=== PATIENT | male | born 1970 | race Caucasian/White ===

== ENCOUNTER → 2016-05-07 | Outpatient (CLI) | payer BC ==
[~2016-05-07] MED LIST: ASPEC325 PO; CALCTAB5 PO; MULT-506 PO; OMEG10007 PO; PSYL55.43 PO; SIMV20TA2 PO; glucosamine PO
--- NOTE | 2016-05-07 17:11 | ECHOCARDIOGRAM REPORT ---
*NOTICE TO RECEIVING LIBERTARIAN AGENCY This information is strictly Confidential and protected under [place] law. [place] law prohibits you from making any further disclosure of this information unless further disclosure is expressly permitted by the written consent of the person to whom it pertains or is authorized by law. A general authorization for the release of medical or other information is not sufficient for this purpose. Hospital accepts no responsibility if the information is made available to any other person, INCLUDING THE PATIENT. Interpretation Summary * Name: AMARI KHAN Study Date: 05/07/2016 12:57 PM BP: 124/55 mmHg * Patient Location: [facility] HR: 83 * : 1970 (M/d/yyyy) Gender: Male Height: 64 in * Age: 45 yrs Ethnicity: CA Weight: 215 lb * Ordering Physician: Carlos A Lal * Referring Physician: Carlos A Lal. * Performed By: Katrina Stringer RCS * * Reason For Study: S/P MITRAL VALVE REPAIR (2001) * BSA: 2.0 m2 * -- Conclusions -- * There is mild concentric left ventricular hypertrophy. * Left ventricular systolic function is normal. * The left atrium is mildly dilated. * The posterior mitral leaflet is thickened and fixed consistent with prior mitral repair surgery. * Significant mitral regurgitation is absent. * Right ventricular systolic pressure is normal. * Mild aortic root dilatation. * Grade I diastolic dysfunction, (abnormal relaxation pattern). * Mitral stenosis is absent. * Compared toa study from 02/2015, the aortic root is slightly larger, otherwise no change Procedure Details * A complete two-dimensional transthoracic echocardiogram was performed (2D, M-mode, Doppler and color flow Doppler). Left Ventricle * The left ventricle is normal in size. * There is mild concentric left ventricular hypertrophy. * Left ventricular systolic function is normal. * Ejection Fraction = 55-60%. * Grade I diastolic dysfunction, (abnormal relaxation pattern). Right Ventricle * The right ventricle is grossly normal size. * The right ventricular systolic function is normal. Atria * The left atrium is mildly dilated. Mitral Valve * The posterior mitral leaflet is thickened and fixed consistent with prior mitral repair surgery. * Mitral stenosis is absent. * Significant mitral regurgitation is absent. Tricuspid Valve * The tricuspid valve is not well visualized, but is grossly normal. * There is trace tricuspid regurgitation. * Right ventricular systolic pressure is normal. Aortic Valve * The aortic valve is normal in structure and function. * No hemodynamically significant valvular aortic stenosis. * There is no significant aortic regurgitation. Great Vessels * Mild aortic root dilatation. Pericardium/Pleural * There is no pericardial effusion. MMode 2D Measurements and Calculations IVSd 1.4 cm IVSs 1.9 cm LVIDd 4.9 cm LVIDs 4.2 cm LVPWd 1.5 cm LVPWs 1.7 cm IVS/LVPW 0.92 FS 14.3 % EDV(Teich) 111.8 ml ESV(Teich) 77.9 ml EF(Teich) 30.3 % EDV(cubed) 116.3 ml ESV(cubed) 73.3 ml EF(cubed) 37.0 % % IVS thick 33.7 % % LVPW thick 10.9 % LV mass(C)d 302.3 grams LV mass(C)dI 149.9 grams/m\S\2 LV mass(C)s 330.0 grams LV mass(C)sI 163.6 grams/m\S\2 SV(Teich) 33.9 ml SI(Teich) 16.8 ml/m\S\2 SV(cubed) 43.0 ml SI(cubed) 21.3 ml/m\S\2 Ao root diam 4.3 cm Ao root area 14.7 cm\S\2 LA dimension 4.1 cm LA/Ao 0.94 LVOT diam 2.1 cm LVOT area 3.4 cm\S\2 Doppler Measurements and Calculations MV E max fauzia 92.5 cm/sec MV A max fauzia 135.3 cm/sec MV E/A 0.68 MV P1/2t max fauzia 105.9 cm/sec MV P1/2t 88.8 msec MVA(P1/2t) 2.5 cm\S\2 MV dec slope 349.6 cm/sec\S\2 MV dec time 0.36 sec Ao V2 max 100.0 cm/sec Ao max PG 4.0 mmHg Ao max PG (full) 1.6 mmHg LOUIE(V,A) 2.6 cm\S\2 LOUIE(V,D) 2.6 cm\S\2 LV V1 max PG 2.4 mmHg LV V1 max 77.0 cm/sec PA V2 max 116.5 cm/sec PA max PG 5.4 mmHg PI max fauzia 201.3 cm/sec PI max PG 16.2 mmHg PI dec slope 207.3 cm/sec\S\2 PI P1/2t 284.4 msec TR max fauzia 253.1 cm/sec
== END | disposition home or self-care (01) ==
LOC: C.CPL 12:38
PROVIDERS: ATTEND Thoracic Surgery (Cardiothoracic Vascular Surgery)
DX: Z98.890 Other specified postprocedural states (principal)